=== PATIENT | female | born 1945 | race Caucasian/White ===

== ENCOUNTER 2016-09-24 22:23 | Inpatient (IN) ==
[2016-09-24] MEDS ORDERED: SODIUM CHLORIDE 0.9% 500 ML IV STA (23:26)
[2016-09-24] MEDS ORDERED: ONDANSETRON 4 MG/2 ML VIAL IV STA (23:26)
--- NOTE | 2016-09-24 23:27 | Emergency Department Note ---
Maryana Fuentes Hilary, am scribing for, and in the presence of, Home Lira MD 23:23. Pankaj Fuentes Charles R, MD, personally performed the services described in this documentation, ascribed by Megan Mijares in my presence, and it is both accurate and complete 327 . Arrival - Arrival Chief Complaint: Blood Pressure Stated Complaint: DIABETIC/ELEVATED BP ED Nursing Triage Note: patient states she is a type diabetic, at home last blood glucose was 173 and her bp was 198/90. reading 181/87 in triage , also states chills came on at the same time. Mode of Arrival: Wheelchair Limitations: No Limitations Source: Patient, RN Notes Reviewed Time Seen by Provider: 09/24/16 23:09 - History of Present Illness HPI Narrative: Pt is a 71 y/o female presenting to the ED with c/o nausea and vomiting which onset at 1630 today. Pt states that he came on all of sudden but she hasn't been able to keep anything down since then. She confirms nausea and vomiting, chills, WALLACE and diarrhea but denies abdominal pain. No other complaints or problems stated in the ED. Onset (ago): hour(s) Consistency: constant Severity: mild Severity scale (1-10): 1 Allergies/Adverse Reactions: Allergies Allergy/AdvReac Type Severity Reaction Status Date / Time No Known Allergies Allergy Verified 09/24/16 22:36 Home Medications: Home Medications Medication Instructions Recorded Confirmed Type Aspirin 81 mg PO DAILY 09/24/16 09/24/16 History Atenolol 100 mg PO DAILY 09/24/16 09/24/16 History Levothyroxine Tab [Synthroid Tab] 75 mcg PO DAILY@0700 09/24/16 09/24/16 History Lisinopril 20 mg PO DAILY 09/24/16 09/24/16 History Pioglitazone [Actos] 30 mg PO DAILY 09/24/16 09/24/16 History Rosuvastatin [Crestor] 5 mg PO DAILY 09/24/16 09/24/16 History amLODIPine [Norvasc] 10 mg PO DAILY 09/24/16 09/24/16 History glipiZIDE [Glipizide] 5 mg PO DAILY 09/24/16 09/24/16 History metFORMIN [Glucophage] 1,000 mg PO BID W/MEALS 09/24/16 09/24/16 History Review of System - Review of System 12 point system: reviewed and no additional remarkable complaints except as stated - Review of System Constitutional: Present: chills. Absent: fever Gastrointestinal: Present: nausea, vomiting, diarrhea. Absent: abdominal pain Neurological: Present: headache Medical,Surgical,& Family Hx - Medical History Cardio: History of: Hypertension Endocrine: History of: Diabetes Mellitus (NIDDM), Dyslipidemia - Social History Smoking Status: Never smoker Frequency of Alcohol Use: None Type of Drug Use: None Exam Vital Signs: Vital Signs Temperature 97.9 F 09/24/16 22:29 Pulse Rate 84 09/24/16 23:04 Respiratory Rate 18 09/24/16 23:04 Blood Pressure 154/78 09/24/16 23:04 O2 Sat by Pulse Oximetry 98 09/24/16 23:04 - General General appearance: alert, in no apparent distress - Head Head exam: Present: atraumatic, normocephalic - Eye Eye exam: Present: normal appearance, PERRL, EOMI - ENT ENT exam: Present: mucous membranes moist, TM's normal bilaterally. Absent: mucous membranes dry - Neck Neck exam: Present: full ROM, trachea midline. Absent: tenderness - Chest Chest inspection: Present: symmetric chest wall rise. Absent: tenderness - Respiratory Respiratory exam: Present: normal lung sounds bilaterally. Absent: respiratory distress - Cardiovascular Cardiovascular exam: Present: normal rhythm, tachycardia, normal heart sounds. Absent: murmur, rubs, gallop - Abdominal Exam Abdominal exam: Present: soft, normal bowel sounds. Absent: distention, tenderness - Extremities Exam Extremities exam: Present: full ROM. Absent: tenderness - Back Exam Back exam: Present: full ROM. Absent: tenderness - Neurological Exam Neurological exam: Present: alert, oriented X3, CN II-XII intact. Absent: motor sensory deficit - Psychiatric Psychiatric exam: Present: normal affect, normal mood - Skin Skin exam: Present: warm, dry, intact, normal color. Absent: rash Course - Consultations Consultation #1: Hospitalist will admit patient Time: 00:30 Results - Labs CBC & BMP: 09/24/16 23:43 09/24/16 23:43 Lab Results: I have reviewed the patients labs Labs: Laboratory Tests 09/24/16 23:43 WBC 6.5 RBC 3.67 L Hgb 11.5 L Hct 31.3 L MCV 85.3 L MCHC 36.7 H Plt Count 206 Neut % (Auto) 82.5 H Lymph % (Auto) 10.0 L Lymph # (Auto) 0.7 L Laboratory Tests 09/24/16 23:43 Sodium 119 L* Potassium 4.1 Chloride 87 L Carbon Dioxide 24 Glucose 191 H Calculated Osmolality 244.3 L Magnesium 1.3 L Total Protein 7.4 Globulin 3.7 H Albumin/Globulin Ratio 1.0 L Amylase 20 L Lipase 35.0 L Disposition Clinical Impression: Nausea & vomiting, Hyponatremia, Hypomagnesemia, Generalized weakness Case discussed with: patient Disposition: Still a Patient Condition: Stable Time of Disposition: 00:30
[2016-09-24] MEDS ORDERED: ONDANSETRON 4 MG/2 ML VIAL ONE (23:39)
[2016-09-25 00:01] LABS: Basophils % 0.3 % (0.0-0.8); Eosinophils % 0.3 % (0.00-10.9); Hematocrit 31.3 VOL% (35.7-47.0); Hemoglobin 11.5 GM/DL (12.0-16.0); Immature Granulocytes % 0.5 %; Immature Granulocytes Absolute 0.03 #; Lymphocytes # 0.7 10*3/uL (1.4-4.0); Mean Corpuscular HGB Conc 36.7 GM/DL (32-36); Mean Corpuscular Hemoglobin 31 PG (27-34); Mean Corpuscular Volume 85.3 FL (87-102); Mean Platelet Volume 10.4 FL (9.6-12.0); Monocytes # 0.4 10*3/uL (0.11-0.8); Monocytes % 6.4 % (1.7-12.7); Neutrophils # 5.4 10*3/uL (1.4-7.4); Neutrophils % 82.5 % (38.7-73.9); Platelet Count 206 T/CUMM (130-400); Red Blood Count 3.67 MC/CUMM (3.8-5.5); White Blood Count 6.5 T/CUMM (4-12)
[2016-09-25 00:24] LABS: Albumin 3.7 G/DL (3.4-5.0); Bilirubin,Total 0.4 MG/DL (0.2-1.0); Calcium 8.5 MG/DL (8.5-10.1); Magnesium 1.3 MG/DL (1.8-2.4); Total Protein 7.4 G/DL (6.4-8.3)
[2016-09-25 00:25] LABS: Osmolality,Calculated 244.3 MOS/KG (273-304); Potassium 4.1 MMOL/L (3.5-5.1)
[2016-09-25] MEDS ORDERED: MAGNESIUM SULF RIDER 2 GM in PREMIX 1 EACH IV STA (00:27)
[2016-09-25] MEDS ORDERED: SODIUM CHLORIDE 0.9% 500 ML IV STA (00:27)
[2016-09-25] MEDS ORDERED: MAGNESIUM SULF RIDER 50 ML IV ONE (00:40)
--- NOTE | 2016-09-25 01:33 | Hospitalist History & Physical ---
Assessment and Plan (1) Intractable nausea and vomiting Status: Acute Assessment and plan: cause is unclear to r/o gastroparesis, infection Plan IVF Clear liquids IV antiemetics IV protonix bmp in am , Current Visit: Yes (2) Hyponatremia Status: Acute Assessment and plan: acute on chronic This could be multifactorial- from n/v, to r/o sec to thyroid dx, pseudohyponatremia from hyperglycemia,hypertriglycerides,unlikely to be due to drugs-pt not on any drugs that will deplete her sodium Plan telemetry Serial bmp Continue IV Normal saline-plan is not to correct too quickly inorder to avoid pontine myelinolysis.Goal-not more than 8meq correction in the first 24hrs and 16meq in 48hrs Lipids, TSH levels Correct blood sugar anti emetics Current Visit: Yes (3) HTN (hypertension) Status: Acute Assessment and plan: will resume home meds Current Visit: Yes (4) Hyperlipidemia Status: Acute Assessment and plan: Resume meds, will get lipids Current Visit: Yes (5) Diabetes mellitus Status: Acute Assessment and plan: will hold oral hypoglycemics for now , place on ssc insulin and acc checks will get HbA1c level Current Visit: Yes (6) Right ankle swelling Status: Acute Assessment and plan: R/o DVT vs early cellulitis Plan Doppler USS to r/o DVT IV Rocephin Current Visit: Yes History of Present Illness Chief complaint: nausea and vomiting History of present illness: Ms. Diehl is a 71 year old female with a history of HTN, Diabetes, Hyperlipidemia, hypothyroidism who presents with intractable nausea and vomiting.Patient was well until around 4.30-5pm yesterday when she started having nausea and vomiting. There was no associated abdominal pain, cramps. No diarrhea, constipation, hematemesis and melena stools.She denies fever, chills and rigor. Symptoms progressively worsened to the point that she couldnt keep anything down, became so weak and her blood pressure at home was going up so she decided to report to the ER.Her PCP, Dr lee saw her in the clinic and told her she needed a doppler USS of her right swollen ankle inorder to r/o DVT.Upon arrival to the ER,her bp was 181/87,Labs showed a sodium level of 119. Patient states her sodium level is always low each time they check in the clinic but she has never been treated for it.She was bolused with IVF and on admission for further retirement Medications Medication Instructions Recorded Confirmed Type Aspirin 81 mg PO DAILY 09/24/16 09/24/16 History Atenolol 100 mg PO DAILY 09/24/16 09/24/16 History Levothyroxine Tab [Synthroid Tab] 75 mcg PO DAILY@0700 09/24/16 09/24/16 History Lisinopril 20 mg PO DAILY 09/24/16 09/24/16 History Pioglitazone [Actos] 30 mg PO DAILY 09/24/16 09/24/16 History Rosuvastatin [Crestor] 5 mg PO DAILY 09/24/16 09/24/16 History amLODIPine [Norvasc] 10 mg PO DAILY 09/24/16 09/24/16 History glipiZIDE [Glipizide] 5 mg PO DAILY 09/24/16 09/24/16 History metFORMIN [Glucophage] 1,000 mg PO BID W/MEALS 09/24/16 09/24/16 History Allergies Allergy/AdvReac Type Severity Reaction Status Date / Time No Known Allergies Allergy Verified 09/24/16 22:36 Medical,Surgical,& Family Hx - Medical History Cardio: History of: Hypertension Endocrine: History of: Diabetes Mellitus (NIDDM), Dyslipidemia - Social History Smoking Status: Never smoker Frequency of Alcohol Use: None Type of Drug Use: None 12 point system: reviewed and no additional remarkable complaints except as stated Exam - Constitutional Vitals: Period Temp Pulse Resp BP Sys/Roldan Pulse Ox Last 24 Hr 97.9 F-97.9 F 84-90 18-20 154-181/78-87 97-98 General appearance: no acute distress - Head Head exam: Present: normal inspection - Respiratory Respiratory exam: Present: clear to auscultation bilaterally - Cardiovascular Cardiovascular exam: Present: regular rate and rhythm - GI/Abdominal GI/Abdominal exam: Present: normal bowel sounds - Extremities Exam Extremities exam: Present: other (right ankle swelling, redness and tenderness) - Neurological Exam Neurological exam: Present: alert, oriented X3 Results - Labs CBC & BMP: 09/24/16 23:43 09/24/16 23:43 Lab Results: I have reviewed the past 24 hour labs
[2016-09-25 01:51] LABS: Troponin I Only < 0.015 NG/ML (0.00-0.045)
[2016-09-25 02:23] LABS: Free T4 (Free Thyroxine) 1.62 NG/DL (0.76-1.46); Thyroid Stimulating Hormone 3.49 uIU/ml (0.358-3.74)
[2016-09-25] MEDS ORDERED: PROMETHAZINE 25 MG/1 ML VIAL IM PRN (03:18)
[2016-09-25] MEDS ORDERED: ONDANSETRON 4 MG/2 ML VIAL IV PRN (03:18)
[2016-09-25 03:31] LABS: Apearance,Urine CLEAR (Clear); Bilirubin,Urine Negative (Negative); Blood, Urine Negative (Negative); Glucose,Urine (UA) Negative (Negative); Ketones,Urine 20 mg/dL (Negative); Nitrite,Urine Negative (Negative); Protein,Urine 30 MG/DL; RBC,Urine 1 /HPF (0-4); Urine Color Straw (Yellow); Urine Specific Gravity 1.008 (1.001-1.035); Urine Urobilinogen < 2.0 EU/DL (0.2-1.0); WBC,Urine 1 /HPF (0-6)
[2016-09-25] MEDS: SODIUM CHLORIDE 0.9% 1,000 ML IV SCH ×2 (06:11→21:28)
[2016-09-25] MEDS: LEVOTHYROXINE 75 MCG TABLET PO SCH (06:11)
[2016-09-25 06:19] LABS: Basophils % 0.3 % (0.0-0.8); Eosinophils % 0.5 % (0.00-10.9); Hematocrit 32.2 VOL% (35.7-47.0); Hemoglobin 11.4 GM/DL (12.0-16.0); Immature Granulocytes % 0.5 %; Immature Granulocytes Absolute 0.03 #; Lymphocytes # 0.8 10*3/uL (1.4-4.0); Lymphocytes % 12.2 % (21.3-54.2); Mean Corpuscular HGB Conc 35.4 GM/DL (32-36); Mean Corpuscular Hemoglobin 31 PG (27-34); Mean Corpuscular Volume 86.1 FL (87-102); Mean Platelet Volume 10.4 FL (9.6-12.0); Monocytes # 0.5 10*3/uL (0.11-0.8); Monocytes % 7.5 % (1.7-12.7); Neutrophils # 4.8 10*3/uL (1.4-7.4); Platelet Count 202 T/CUMM (130-400); Red Blood Count 3.74 MC/CUMM (3.8-5.5); White Blood Count 6.1 T/CUMM (4-12)
[2016-09-25 06:51] LABS: Albumin 3.5 G/DL (3.4-5.0); Bilirubin,Total 0.7 MG/DL (0.2-1.0); Calcium 8.7 MG/DL (8.5-10.1); Osmolality,Calculated 254.4 MOS/KG (273-304); Potassium 4.5 MMOL/L (3.5-5.1); Risk Ratio 1.67; Total Protein 6.9 G/DL (6.4-8.3); VLDL CHOLESTEROL 10.6 MG/DL
[2016-09-25] MEDS ORDERED: ROSUVASTATIN 10 MG TABLET PO SCH ×2 (09:00→21:00)
[2016-09-25] MEDS ORDERED: ASPIRIN CHEW 81 MG TABLET PO SCH ×2 (09:00→21:00)
[2016-09-25] MEDS: PANTOPRAZOLE 40 MG VIAL IV SCH (09:46)
[2016-09-25] MEDS: cefTRIAXone 1,000 MG in SODIUM CHLORIDE 0.9% 100 ML IV SCH (09:47)
[2016-09-25] MEDS: ENOXAPARIN 40 MG/0.4 ML SYRINGE SUBCUT SCH (09:47)
[2016-09-25] MEDS: LISINOPRIL 20 MG TABLET PO SCH (11:02)
[2016-09-25] MEDS: amLODIPine 10 MG TABLET PO SCH (11:03)
[2016-09-25] MEDS: ATENOLOL 100 MG TABLET PO SCH (11:03)
--- NOTE | 2016-09-25 11:15 | Ultrasound Report ---
History: Swelling and erythema of the lower extremities Date: 09/25/2016 Study: Bilateral lower extremity color-flow venous Doppler study Comparison exam: No previous Color Doppler, wave form analysis, and compression analysis of the deep veins of both lower extremities from the common femoral vein level through the popliteal vein level shows that the veins are readily compressible. There is no abnormal intraluminal material to suggest thrombus. Waveform analysis is unremarkable. Ultrasound images were captured and archived Impression: Normal bilateral lower extremity color flow venous Doppler study. No evidence of acute DVT PROCEDURE INTERPRETED AT [facility] DEPARTMENT OF RADIOLOGY Final Report Signed by: Dr. Angela Morales
[2016-09-25 14:42] LABS: Calcium 7.9 MG/DL (8.5-10.1); Osmolality,Calculated 258.4 MOS/KG (273-304); Potassium 4.1 MMOL/L (3.5-5.1)
[2016-09-25] MEDS: INSULIN LISPRO 100 UNIT/ML SUBCUT SCH ×2 (16:32→21:27)
[2016-09-26] MEDS: SODIUM CHLORIDE 0.9% 1,000 ML IV SCH (00:15)
[2016-09-26 05:44] LABS: Basophils % 0.5 % (0.0-0.8); Eosinophils # 0.1 10*3/uL (0.0-0.87); Eosinophils % 2.4 % (0.00-10.9); Hematocrit 30.1 VOL% (35.7-47.0); Hemoglobin 10.4 GM/DL (12.0-16.0); Immature Granulocytes % 0.5 %; Immature Granulocytes Absolute 0.02 #; Lymphocytes # 0.9 10*3/uL (1.4-4.0); Lymphocytes % 21.1 % (21.3-54.2); Mean Corpuscular HGB Conc 34.6 GM/DL (32-36); Mean Corpuscular Hemoglobin 31 PG (27-34); Mean Corpuscular Volume 89.1 FL (87-102); Mean Platelet Volume 10.5 FL (9.6-12.0); Monocytes # 0.5 10*3/uL (0.11-0.8); Monocytes % 11.9 % (1.7-12.7); Neutrophils # 2.6 10*3/uL (1.4-7.4); Neutrophils % 63.6 % (38.7-73.9); Platelet Count 198 T/CUMM (130-400); Red Blood Count 3.38 MC/CUMM (3.8-5.5); Red Cell Distribution Width 13.4 % (9.3-17.3); White Blood Count 4.1 T/CUMM (4-12)
[2016-09-26] MEDS: LEVOTHYROXINE 75 MCG TABLET PO SCH (06:05)
[2016-09-26 06:13] LABS: Calcium 8.2 MG/DL (8.5-10.1); Osmolality,Calculated 267.2 MOS/KG (273-304); Potassium 4.2 MMOL/L (3.5-5.1)
[2016-09-26 08:18] VITALS: BP 123/61
[2016-09-26] MEDS: PANTOPRAZOLE 40 MG VIAL IV SCH (08:41)
[2016-09-26] MEDS: amLODIPine 10 MG TABLET PO SCH (08:42)
[2016-09-26] MEDS: ATENOLOL 100 MG TABLET PO SCH (08:42)
[2016-09-26] MEDS: ENOXAPARIN 40 MG/0.4 ML SYRINGE SUBCUT SCH (08:42)
[2016-09-26] MEDS: LISINOPRIL 20 MG TABLET PO SCH (08:42)
[2016-09-26] MEDS: INSULIN LISPRO 100 UNIT/ML SUBCUT SCH (08:42)
[2016-09-26] MEDS: cefTRIAXone 1,000 MG in SODIUM CHLORIDE 0.9% 100 ML IV SCH (08:43)
[2016-09-26] MEDS ORDERED: GLUCAGON 1 MG VIAL IM PRN (09:27)
--- NOTE | 2016-09-26 09:56 | Discharge Summary ---
Hospital Course - Hospital Course Hospital Course: Mrs Diehl presented with right ankle erythema and pain, a day of nausea and vomiting and a low sodium. The day before [facility] was seen by Dr Molina he recommended LE US of her ankle to r/ o DVT. She had not yet had that done prior to admission. She was treated for cellulitis and DVT was ruled out. Bcx and Ucx were negative at discharge but not final. She was also treated for her sodium of 119 with fluid restriction and some NS. It has corrected to 134 almost spontaneously. I called to update Dr Molina on her case prior to discharge and spoke to his clinic nurse Eden who told me that this week at the clinic the sodium was 123, and prior to that had been 132. I will discharge her home on fluid restriction and have her see Dr Molina in the clinic next week with BMP, urine sodium and osmolarity to complete work up of causes. Her TSH and glucose were normal. She will complete treatment for cellulitis with keflex. The area is less tender and no longer warm or red today. - Time spent with patient Time with patient DS: Greater than 30 minutes (37 minutes spent discussing with patient, discharge planning, coordination of care, medicine reconciliation, documentation.) Diagnosis - Discharge Diagnosis (1) Cellulitis Status: Acute (2) Nausea & vomiting Status: Resolved (3) Hyponatremia Status: Resolved (4) Generalized weakness Status: Resolved (5) Diabetes mellitus Status: Chronic Specialty Discharge - Follow Up or Referrals Follow up with: Rony Molina MD [Physician] - 10/01/16 2:30 pm (needs urine sodium, osmolarity , BMP at that apointment) - Speciality Discharge Instructions Internal Medicine Instructions: limit your fluid intake each day to 1500 mls. Discharge Plan - Discharge Data Disposition: Disch To Home/Self Care Condition at Discharge: Stable Discharge Diet: heart healthy, other (fluid restriction 1500 mls per day.) Activity: resume usual activities as tolerated - Discharge Medications New cephALEXin [Keflex] 500 mg PO Q8HR #20 capsule Continue metFORMIN [Glucophage] 1,000 mg PO BID W/MEALS Rosuvastatin [Crestor] 5 mg PO DAILY Levothyroxine Tab [Synthroid Tab] 75 mcg PO DAILY@0700 amLODIPine [Norvasc] 10 mg PO DAILY glipiZIDE [Glipizide] 5 mg PO DAILY Atenolol 100 mg PO DAILY Aspirin 81 mg PO DAILY Pioglitazone [Actos] 30 mg PO DAILY Lisinopril 20 mg PO DAILY - Follow Up or Referral Follow Up: Rony Molina MD [Physician] - 10/01/16 2:30 pm (needs urine sodium, osmolarity , BMP at that apointment) - Forms/Instructions Instructions: Dehydration (DC), Hyponatremia (DC) Exam - Constitutional Vitals: Period Temp Pulse Resp BP Sys/Roldan Pulse Ox Last 24 Hr 96.6 F-98.8 F 66-74 16-20 108-141/57-71 92-99 General appearance: no acute distress, morbidly obese - Eye Eye exam: Present: EOMI. Absent: scleral icterus - Respiratory Respiratory exam: Present: clear to auscultation bilaterally - Cardiovascular Cardiovascular exam: Present: regular rate and rhythm - GI/Abdominal GI/Abdominal exam: Present: normal bowel sounds, soft. Absent: tenderness - Extremities Exam Extremities exam: Absent: edema (right ankle with minimal edema, no redness or warmth today. still mild tenderness. ) Discharge Results Procedures and tests throughout hospitalization: Pending Orders 09/25/16 03:10 Urine Culture Routine 09/25/16 05:59 Blood Culture Routine Labs on day of discharge: Labs from last 24 hours 09/26/16 09/26/16 09/26/16 08:04 05:00 04:59 WBC 4.1 D RBC 3.38 L Hgb 10.4 L Hct 30.1 L MCV 89.1 MCH 31 MCHC 34.6 RDW 13.4 Plt Count 198 MPV 10.5 Neut % (Auto) 63.6 Lymph % (Auto) 21.1 L [place] % (Auto) 11.9 Eos % (Auto) 2.4 Baso % (Auto) 0.5 Neut # (Auto) 2.6 Lymph # (Auto) 0.9 L [place] # (Auto) 0.5 Eos # (Auto) 0.1 Baso # (Auto) 0.0 Immature Gran % 0.5 Nucleated RBC % 0.0 Immature Gran # 0.02 Nucleated RBCs # 0.00 Immature Plt Fraction 0.0 Sodium 134 L Potassium 4.2 Chloride 100 Carbon Dioxide 26 Anion Gap 12.2 BUN 7 Creatinine 0.90 GFR Calculation 74 BUN/Creatinine Ratio 7.00 Glucose 134 H POC Glucose 186 H Calculated Osmolality 267.2 L Calcium 8.2 L 09/25/16 09/25/16 09/25/16 21:23 16:10 13:54 WBC RBC Hgb Hct MCV MCH MCHC RDW Plt Count MPV Neut % (Auto) Lymph % (Auto) [place] % (Auto) Eos % (Auto) Baso % (Auto) Neut # (Auto) Lymph # (Auto) [place] # (Auto) Eos # (Auto) Baso # (Auto) Immature Gran % Nucleated RBC % Immature Gran # Nucleated RBCs # Immature Plt Fraction Sodium 126 L Potassium 4.1 Chloride 93 L Carbon Dioxide 24 Anion Gap 13.1 BUN 7 Creatinine 0.90 GFR Calculation 74 BUN/Creatinine Ratio 7.00 Glucose 234 H POC Glucose 162 H 145 H Calculated Osmolality 258.4 L Calcium 7.9 L Preliminary micro results at discharge 09/25/16 05:59 Blood Culture - Preliminary Blood No growth at 1 day 09/25/16 05:59 Blood Culture - Preliminary Blood No growth at 1 day DS: Provider Date of admission: 09/25/16 01:41 Primary care physician: . No PCP Attending physician on admission: Evelin Espinal MD Discharging clinician: Dona Mae MD
[2016-09-26] MEDS ORDERED: DEXTROSE 50% 25 GM/50 ML SYRINGE IV PRN (10:00)
== END 2016-09-26 11:28 | disposition home or self-care (01) | DRG 392 ==
LOC: N.ED 22:23 → SUATTDRO 09-25 01:41 → N.EDINP 09-25 01:41 → N.TELES 09-25 02:43
PROVIDERS: ADMIT Internal Medicine; ATTEND Internal Medicine